=== PATIENT | female | born 1955 | race Hispanic/Latino ===

== ENCOUNTER 2023-03-30 11:35 | Emergency (ER) | payer MEDICARE, SELFPAY ==
--- NOTE | 2023-03-30 11:41 | ED.URI ---
HPI - URI/Sore Throat General Chief Complaint: Upper Respiratory Infection Stated Complaint: Sore Throat Time Seen by Provider: 03/30/23 12:03 Source: patient and RN notes reviewed Mode of arrival: ambulatory Limitations: no limitations History of Present Illness HPI Narrative: 67-year-old female presents concern for sore throat. She reports to 3 week history of nasal congestion, rhinorrhea, cough. Reports symptoms evolve with sore throat, fever, chills, body aches. She has not taken any medications for her symptoms. She reports painful swallowing MD elicited complaint: sore throat Related Data Allergies Allergy/AdvReac Type Severity Reaction Status Date / Time acetaminophen Allergy Unknown Unknown Verified 03/30/23 11:46 morphine Allergy Unknown Unknown Verified 03/30/23 11:46 oxycodone Allergy Unknown Unknown Verified 03/30/23 11:46 Penicillins Allergy Unknown Unknown Verified 03/30/23 11:46 vancomycin Allergy Unknown Unknown Verified 03/30/23 11:46 Contrast Media Allergy Unknown Unknown Uncoded 03/30/23 11:46 Review of Systems Review of Systems: CONSTITUTIONAL: Denies malaise, chills, sweats, or fever. EYES: Denies visual changes, redness, or discharge. ENT: Reports rhinorrhea, congestion, otalgia and sore throat. CARDIOVASCULAR: Denies chest pain, palpitations, or edema. RESPIRATORY: Reports cough. Denies dyspnea. GASTROINTESTINAL: Denies abdominal pain, nausea, vomiting, diarrhea SKIN: Denies rash or itching. MUSCULOSKELETAL: Reports myalgia. NEUROLOGIC: Denies headache. All systems reviewed & are unremarkable except as noted in HPI and below PMFSH Comments At time of signature, agree with nursing past medical, surgical, social and family history. There is no relevant family history pertinent to the presenting complaint Exam Narrative: GENERAL: Well-appearing, well-nourished, and in no acute distress. HEAD: Normocephalic EYES: PERRLA, conjunctivae clear ENT: Nares clear Mucous membranes moist. TM pearly lomax with dull light reflex bilaterally; no tragal tenderness. Oropharynx erythematous without lesions. Tonsils enlarged and without exudate, no drooling, no hoarseness, no trismus, uvula midline. NECK: Supple. No lymphadenopathy CHEST: Clear to auscultation, breath sounds equal. No wheezing, rhonchi, rales, or stridor. No respiratory distress, speaks in full sentences. HEART: Regular rate and rhythm. No murmur heard. SKIN: Warm, dry, no rash. NEURO: Alert and oriented x3. PSYCH: Normal mood and affect Course Course Emergency Course: Patient is aware of diagnosis, understands and agrees to treatment plan. Anticipatory guidance given. Patient agrees to follow-up as directed and is aware of reasons to seek care at the emergency department. Portions of this record may have been created with voice recognition software Level of Care: Express Care Visit Vital Signs Vital signs: Reviewed. MDM - URI/Sore Throat MDM Narrative Medical decision making narrative: Differential diagnosis considered: Arriola virus, strep pharyngitis, allergic rhinitis, upper respiratory tract infection, sinusitis, rhinosinusitis, nasopharyngitis. viral pharyngitis, otitis media, otitis externa, pneumonia, bronchitis, viral cough syndrome, viral syndrome, and influenza. Exam findings show no acute concerns or changes; patient is non-toxic appearing and is in no distress. Patient is appropriate for outpatient treatment and follow-up. Lab Data Attestation: I reviewed the patient's lab results. Critical Care Time Critical Care Time Critical Care Time: No Discharge Plan Discharge Clinical Impression: Acute streptococcal pharyngitis Patient Disposition: Home, Self-Care Condition: Stable Instructions: Antibiotic Form, Strep Throat (ED) Additional Instructions: -Take the medication as prescribed. Throw away the toothbrush after 24hours of antibiotic. -Eat and drink things that are easy to swallow, like tea or soup, or p
[2023-03-30 11:52] VITALS: BP 121/70; PULSE 76; RESP 16; TEMP 36.4; O2SAT 100
== END 2023-03-30 12:19 | disposition home or self-care (01) ==
PROVIDERS: Emergency Provider Nurse Practitioner
DX: J02.0 Streptococcal pharyngitis (principal); E78.00 Pure hypercholesterolemia, unspecified; I10 Essential (primary) hypertension; K21.9 Gastro-esophageal reflux disease without esophagitis; E11.9 Type 2 diabetes mellitus without complications
CPT/HCPCS: 87880; 99213; G0463

== ENCOUNTER 2024-10-22 14:35 | Emergency (ER) | payer MEDICARE, SELFPAY ==
[2024-10-22 14:44] VITALS: BP 128/64; PULSE 76; RESP 16; TEMP 36.6; O2SAT 99
[2024-10-22 15:16] LABS: EDUAAPPEAR Cloudy; EDUABILI Negative (Negative); EDUABLOOD Negative (Negative); EDUACOLOR1 Dark; EDUAGLUCOSE Negative (Negative); EDUAKETONE 1+ (Negative); EDUALEUKO 2+ (Negative); EDUANITRATE Negative (Negative); EDUAPH 5.5; EDUAPROTEIN 1+ (Negative); EDUAUROBILI 0.2
--- NOTE | 2024-10-22 16:22 | ED_ITS ---
HPI - Female Genitourinary General Chief complaint: Urogenital-Female Stated complaint: UTI Time Seen by Provider: 10/22/24 14:35 Source: patient Mode of arrival: ambulatory Limitations: no limitations History of Present Illness HPI Narrative: Patient is a 69-year-old female presents with burning, urgency, frequency, right low back pain, chills for 3 days. Patient has been taking azo. Denies any fever, nausea, vomiting, diarrhea. MD elicited complaint: dysuria Related Data Home Medications Medication Instructions Recorded Confirmed Last Taken Type amlodipine 5 mg tablet 5 mg PO DAILY 03/30/23 03/30/23 Unknown History escitalopram oxalate 10 mg tablet 10 mg PO DAILY 03/30/23 03/30/23 Unknown History fluticasone propionate 50 1 spray intranasal DAILY 03/30/23 03/30/23 Unknown History mcg/actuation nasal spray,suspension liraglutide 0.6 mg/0.1 mL (18 mg/3 See Rx Instructions .Route .COMPLEX 03/30/23 03/30/23 Unknown History mL) subcutaneous pen injector (Proximic 3-Matt) lisinopril 5 mg tablet 5 mg PO DAILY 03/30/23 03/30/23 Unknown History metformin 500 mg tablet,extended 500 mg PO DAILY 03/30/23 03/30/23 Unknown History release 24 hr oxybutynin chloride 10 mg 10 mg PO DAILY 03/30/23 03/30/23 Unknown History tablet,extended release 24 hr pantoprazole 40 mg tablet,delayed 40 mg PO DAILY 03/30/23 03/30/23 Unknown History release pravastatin 20 mg tablet 20 mg PO DAILY 03/30/23 03/30/23 Unknown History Allergies Allergy/AdvReac Type Severity Reaction Status Date / Time acetaminophen Allergy Unknown tachycardic Verified 10/22/24 15:08 morphine Allergy Unknown tachycardic Verified 10/22/24 15:08 oxycodone Allergy Unknown Swelling Verified 10/22/24 15:08 Penicillins Allergy Unknown Rash Verified 10/22/24 15:08 vancomycin Allergy Unknown rash Verified 10/22/24 15:08 Contrast Media Allergy Unknown Swelling Uncoded 10/22/24 15:08 Review of Systems Review of Systems: All systems reviewed & are unremarkable except as noted in HPI and below Constitutional: Constitutional: Reports chills, Denies fever(s), Denies headache(s), Denies malaise and Denies weakness Eyes: Eyes: Denies change in vision, Denies eye discharge and Denies irritation ENT: Denies otalgia, Denies headache(s), Denies nasal congestion, Denies nasal discharge, Denies sinus pain and Denies sore throat Cardiovascular: Cardiovascular: Denies chest pain, Denies edema, Denies palpitations and Denies dyspnea Respiratory: Respiratory: Denies cough and Denies dyspnea Gastrointestinal: Gastrointestinal: Denies abdominal pain, Denies diarrhea, Denies nausea and Denies vomiting Genitourinary: Genitourinary: Denies hematuria, Reports nocturia, Reports dysuria, Denies flank pain and Reports urinary urgency Musculoskeletal: Musculoskeletal: Reports back pain and Denies numbness Integumentary/Breasts: Skin/Breast: Denies pruritus and Denies rash Neurologic: Denies headache(s), Denies numbness and Denies weakness Psychiatric: Psychiatric: Reports no additional psychiatric complaints Endocrine: Endocrine: Denies palpitations PMFSH Comments At time of signature, agree with nursing past medical, surgical, social and family history. There is no relevant family history pertinent to the presenting complaint. Exam Const: General: cooperative, healthy appearing, comfortable, no acute distress and well nourished Nutritional Appearance: well nourished Orientation/consciousness: patient oriented x3 HENMT: Head: normocephalic and atraumatic Ears: external ears normal Face/Nose/Sinus: Normal external nose present, Normal nares present and normal facial exam Face and sinus: normal facial exam Eyes: General: appearance normal, both eyes and all related structures Pupils: Equal, round and reactive pupils present EOM: EOMs intact bilaterally Neck: Neck: normal visual inspection, full ROM and supple Chest: Chest palpation & inspection: normal inspection of the chest Resp: Effort & Inspection: normal respiratory effort and able to speak in complete sentences Cardio: Rate: regular rate Rhythm: regular rhythm GI: Inspection: normal to inspection GI Palp: No abdominal tenderness and Yes Soft to palpation : General: Yes no CVA tenderness Back/Spine/Pelvis: Back: no CVA tenderness Skin: General skin exam: normal color and no rashes or lesions noted Neuro: General: patient oriented x3 and moves all extremities Cranial nerves: Yes Equal, round and reactive pupils present Extrem: General: normal to inspection and full ROM Psych: Appearance: grossly normal and well kempt Course Course Emergency Course: Patient is aware of diagnosis, understands and agrees to treatment plan. Anticipatory guidance given. Patient agrees to follow-up as directed and is aware of reasons to seek care at the emergency department. Portions of this record may have been created with voice recognition software Level of Care: Express Care Visit Vital Signs Vital signs: Vital Signs Temperature 36.6 C 10/22/24 14:44 Pulse Rate 76 10/22/24 14:44 Respiratory Rate 16 10/22/24 14:44 Blood Pressure 128/64 10/22/24 14:44 Pulse Oximetry 99 10/22/24 14:44 Oxygen Delivery Room Air 10/22/24 14:44 Temperature 36.6 C 10/22/24 14:44 Pulse Rate 76 10/22/24 14:44 Respiratory Rate 16 10/22/24 14:44 Blood Pressure 128/64 10/22/24 14:44 Pulse Oximetry 99 10/22/24 14:44 Oxygen Delivery Room Air 10/22/24 14:44 Reviewed MDM - Female Genitourinary MDM Narrative Medical decision making narrative: Exam findings and UA show probable UTI; patient is non-toxic appearing and is in no distress. No CMT, adnexal tenderness, or evidence of pelvic etiology. Patient is appropriate for outpatient treatment and follow-up. Differential Diagnosis Differential diagnosis: Likely urinary tract infection, bacterial vaginosis, trichomoniasis, cervicitis, vaginitis and cystitis Medical Records Attestation: I reviewed the patient's medical records. Lab Data Attestation: I reviewed the patient's lab results. Labs: Lab Results 10/22/24 Range/Units 15:12 POC Urine Color Dark POC Urine Clarity Cloudy POC Urine pH 5.5 POC Ur Specif [place] 1.030 POC Urine Protein 1+ (Negative) POC Ur Glucose (UA) Negative (Negative) POC Urine Ketones 1+ (Negative) POC Urine Blood Negative (Negative) POC Urine Nitrite Negative (Negative) POC Urine Bilirubin Negative (Negative) POC Urine Urobilinogen 0.2 POC U Leukocyte Esteras 2+ (Negative) Discharge Plan Discharge Clinical Impression: Urinary tract infection Qualifiers: Urinary tract infection type: acute cystitis Hematuria presence: without hematuria Qualified Code(s): N30.00 - Acute cystitis without hematuria Patient Disposition: Home Condition: Stable Instructions: Urinary Tract Infection in Older Adults (ED) Additional Instructions: We will send a urine culture to the lab, based on your symptoms and urine dip we will start treatment today. If culture comes back and bacteria is not susceptible to antibiotic, your prescription may change. Your symptoms should improve within a day of starting antibiotics, but you should finish all the antibiotic pills you get. Otherwise your infection might come back Continue with increased water intake. Take Tylenol or ibuprofen as needed for pain or fever. Follow-up with primary care provider for urine recheck or see ER visit if condition worsens with high fever, nausea, vomiting, severe back pain Enviaremos un cultivo de orina al laboratorio. Según lynn síntomas y la prueba de orina, comenzaremos el tratamiento hoy. Si el cultivo arroja resultados y las bacterias no son sensibles a los antibióticos, rivera receta podría cambiar. Lynn síntomas deberían mejorar al día siguiente de comenzar los antibióticos, donnie debe terminar todas las pastillas que le den. De lo contrario, la infección podría reaparecer. Continúe con el aumento de la ingesta de agua. [place] Tylenol o ibuprofeno según sea necesario para el dolor o la fiebre. Consulte con rivera médico de cabecera para un nuevo análisis de orina o acuda a urgencias si la afección empeora con fiebre wilman, náuseas, vómitos o dolor de espalda intenso. Patient Language: English Prescriptions: New nitrofurantoin monohyd/m-cryst 100 mg capsule 100 mg PO Q12H 5 Days Qty: 10 0RF Rx Instructions: must administer with a meal/food No Action azithromycin [Zithromax Z-Matt] 250 mg tablet See Rx Instructions .ROUTE .COMPLEX Qty: 6 0RF Rx Instructions: take 500 mg today (day 1), then 250 mg for 4 days (days 2-5) oxybutynin chloride 10 mg tablet extended release 24hr 10 mg PO DAILY amlodipine 5 mg tablet 5 mg PO DAILY pantoprazole 40 mg tablet,delayed release (DR/EC) 40 mg PO DAILY pravastatin 20 mg tablet 20 mg PO DAILY lisinopril 5 mg tablet 5 mg PO DAILY fluticasone propionate 50 mcg/actuation spray,suspension 1 spray INTRANASAL DAILY metformin 500 mg tablet extended release 24 hr 500 mg PO DAILY escitalopram oxalate 10 mg tablet 10 mg PO DAILY Victoza 3-Matt 0.6 mg/0.1 mL (18 mg/3 mL) pen injector See Rx Instructions .ROUTE .COMPLEX Rx Instructions: Rx Follow-up/Referrals: Toby Aguilar MD [Physician] - 3 Days (Establish care) Time of Disposition: 16:31
== END 2024-10-22 16:41 | disposition home or self-care (01) ==
PROVIDERS: Emergency Provider Nurse Practitioner Family
DX: N30.00 Acute cystitis without hematuria (principal)
CPT/HCPCS: 81003; 87086; 99213; G0463

== ENCOUNTER 2024-12-06 10:55 | Emergency (ER) | payer MEDICARE, SELFPAY ==
--- NOTE | 2024-12-06 10:59 | ED.FEMALEGU ---
HPI - Female Genitourinary General Chief complaint: Urogenital-Female Stated complaint: urinary irritation Time Seen by Provider: 12/06/24 10:59 Source: patient Mode of arrival: ambulatory Limitations: no limitations History of Present Illness HPI Narrative: Doreen is a 69-year-old female patient presenting to the clinic today with complaints possible UTI. She reports frequency with urination, right low back pain, bladder pressure, and some chills. No known fevers. Related Data Home Medications ?Medication ?Instructions ?Recorded ?Confirmed ?Last Taken ?Type amlodipine 5 mg tablet 5 mg PO DAILY 03/30/23 03/30/23 Unknown History escitalopram oxalate 10 mg tablet 10 mg PO DAILY 03/30/23 03/30/23 Unknown History fluticasone propionate 50 1 spray intranasal DAILY 03/30/23 03/30/23 Unknown History mcg/actuation nasal spray,suspension liraglutide 0.6 mg/0.1 mL (18 mg/3 See Rx Instructions .Route .COMPLEX 03/30/23 03/30/23 Unknown History mL) subcutaneous pen injector ([employer] 3-Matt) lisinopril 5 mg tablet 5 mg PO DAILY 03/30/23 03/30/23 Unknown History metformin 500 mg tablet,extended 500 mg PO DAILY 03/30/23 03/30/23 Unknown History release 24 hr oxybutynin chloride 10 mg 10 mg PO DAILY 03/30/23 03/30/23 Unknown History tablet,extended release 24 hr pantoprazole 40 mg tablet,delayed 40 mg PO DAILY 03/30/23 03/30/23 Unknown History release pravastatin 20 mg tablet 20 mg PO DAILY 03/30/23 03/30/23 Unknown History Allergies Allergy/AdvReac Type Severity Reaction Status Date / Time acetaminophen Allergy Unknown tachycardic Verified 12/06/24 11:09 morphine Allergy Unknown tachycardic Verified 12/06/24 11:09 oxycodone Allergy Unknown Swelling Verified 12/06/24 11:09 Penicillins Allergy Unknown Rash Verified 12/06/24 11:09 vancomycin Allergy Unknown rash Verified 12/06/24 11:09 Contrast Media Allergy Unknown Swelling Uncoded 12/06/24 11:09 Review of Systems Review of Systems: Pertinent positives per HPI. Patient denies any fever, chills, rash, headache, visual changes, dizziness, cough, runny nose, sore throat, shortness of breath, chest pain, palpitations, nausea, vomiting, diarrhea, constipation, abdominal pain, or any urinary issues. PMFSH Comments At the time of my signature, I reviewed and agree with the nursing past medical, surgical, social, and family history. There is no relevant family history pertinent to the patient complaint. Exam Narrative: General: Well-developed, well nourished, in no apparent distress. Head: Normocephalic, atraumatic. Cardio: Regular rate and rhythm, s1 and s2 normal, no murmur appreciated. Resp: Clear to auscultation bilaterally, no rhonchi, rales, wheezing or rubs. Abdomen: Soft, pliable, bowel sounds present in all quadrants, suprapubic tender to palpation, no organomegly, mild right CVAT tenderness. Course Course Emergency Course: Portions of this record may have been created with voice recognition software. Level of Care: Express Care Visit Vital Signs Vital signs: Vital Signs Temperature 37.0 C 12/06/24 11:09 Pulse Rate 81 12/06/24 11:09 Respiratory Rate 16 12/06/24 11:09 Blood Pressure 122/62 12/06/24 11:09 Pulse Oximetry 97 12/06/24 11:09 Oxygen Delivery Room Air 12/06/24 11:09 Temperature 37.0 C 12/06/24 11:09 Pulse Rate 81 12/06/24 11:09 Respiratory Rate 16 12/06/24 11:09 Blood Pressure 122/62 12/06/24 11:09 Pulse Oximetry 97 12/06/24 11:09 Oxygen Delivery Room Air 12/06/24 11:09 Vital signs reviewed MDM - Female Genitourinary MDM Narrative Medical decision making narrative: At the time of visit patient is resting comfortably on the exam table. Patient appears to be nontoxic. Labs: Urinalysis positive for 3+ leukocytes, 3+ blood, protein, nitrates, and trace ketone. We will send urine for culture. Plan: I suspect patient has a complicated UTI-possibly pyelonephritis. Prescription for 7 day course of ciprofloxacin was sent to the pharmacy. We will send urine for culture. Supportive measures were discussed with the patient and they voiced understanding discharge instructions and agrees to treatment plan. Return precautions reviewed Differential Diagnosis Differential diagnosis: Likely urinary tract infection, cystitis and other (Pyelonephritis) Discharge Plan Discharge Clinical Impression: Urinary tract infection Qualifiers: Urinary tract infection type: acute cystitis Hematuria presence: with hematuria Qualified Code(s): N30.01 - Acute cystitis with hematuria Patient Disposition: Home Condition: Stable Instructions: Antibiotic Form, Urinary Tract Infection in Women (ED) Additional Instructions: Urinalysis positive for leukocytes, protein, nitrates, blood, and trace of ketone. We will send urine for culture Take ciprofloxacin as prescribed Increase fluids and stay well hydrated Wipe front to back. May use wet wipes. Avoid tub baths If sexually active- pee before and after intercourse. Wear cotton panties Avoid tight clothing up against the genitals Follow up with your PCP in 1 week if symptoms persist. Patient Language: Icelandic Prescriptions: New ciprofloxacin HCl [Cipro] 500 mg tablet 500 mg PO Q12H 7 Days Qty: 14 0RF No Action oxybutynin chloride 10 mg tablet extended release 24hr 10 mg PO DAILY amlodipine 5 mg tablet 5 mg PO DAILY pantoprazole 40 mg tablet,delayed release (DR/EC) 40 mg PO DAILY pravastatin 20 mg tablet 20 mg PO DAILY lisinopril 5 mg tablet 5 mg PO DAILY fluticasone propionate 50 mcg/actuation spray,suspension 1 spray INTRANASAL DAILY metformin 500 mg tablet extended release 24 hr 500 mg PO DAILY escitalopram oxalate 10 mg tablet 10 mg PO DAILY liraglutide [Victoza 3-Matt] 0.6 mg/0.1 mL (18 mg/3 mL) pen injector See Rx Instructions .ROUTE .COMPLEX Rx Instructions: Rx nitrofurantoin monohyd/m-cryst 100 mg capsule 100 mg PO Q12H 5 Days Qty: 10 0RF Rx Instructions: must administer with a meal/food Follow-up/Referrals: UNKNOWN,DOCTOR [Primary Care Provider] - Time of Disposition: 11:19 Quality NIHSS Nursing Documentation ED NIHSS nursing documentation: reviewed/agree
[2024-12-06 11:09] VITALS: BP 122/62; PULSE 81; RESP 16; TEMP 37; O2SAT 97
[2024-12-06 11:31] LABS: EDUAAPPEAR Cloudy; EDUABILI Negative (Negative); EDUABLOOD 3+ (Negative); EDUACOLOR1 Dark; EDUAGLUCOSE Negative (Negative); EDUAKETONE Trace (Negative); EDUALEUKO 3+ (Negative); EDUANITRATE Positive (Negative); EDUAPROTEIN 3+ (Negative); EDUASPGRAVITY 1.025
== END 2024-12-06 11:30 | disposition home or self-care (01) ==
PROVIDERS: Emergency Provider Nurse Practitioner Family
DX: N30.01 Acute cystitis with hematuria (principal); I10 Essential (primary) hypertension; K21.9 Gastro-esophageal reflux disease without esophagitis; E11.9 Type 2 diabetes mellitus without complications; Z79.84 Long term (current) use of oral hypoglycemic drugs; F32.A Depression, unspecified
CPT/HCPCS: 81003; 87086; 87186; 99213; G0463

== ENCOUNTER 2025-01-14 09:56 | Emergency (ER) | payer MEDICARE, SELFPAY ==
--- NOTE | 2025-01-14 09:57 | ED_ITS ---
HPI - Female Genitourinary General Chief complaint: Urogenital-Female Stated complaint: UTI Time Seen by Provider: 01/14/25 09:57 Source: patient Mode of arrival: ambulatory Limitations: no limitations History of Present Illness MD elicited complaint: dysuria Related Data Home Medications ?Medication ?Instructions ?Recorded ?Confirmed ?Last Taken ?Type amlodipine 5 mg tablet 5 mg PO DAILY 03/30/23 03/30/23 Unknown History escitalopram oxalate 10 mg tablet 10 mg PO DAILY 03/30/23 03/30/23 Unknown History fluticasone propionate 50 1 spray intranasal DAILY 03/30/23 03/30/23 Unknown History mcg/actuation nasal spray,suspension liraglutide 0.6 mg/0.1 mL (18 mg/3 See Rx Instructions .Route .COMPLEX 03/30/23 03/30/23 Unknown History mL) subcutaneous pen injector (Victoza 3-Matt) lisinopril 5 mg tablet 5 mg PO DAILY 03/30/23 03/30/23 Unknown History metformin 500 mg tablet,extended 500 mg PO DAILY 03/30/23 03/30/23 Unknown History release 24 hr oxybutynin chloride 10 mg 10 mg PO DAILY 03/30/23 03/30/23 Unknown History tablet,extended release 24 hr pantoprazole 40 mg tablet,delayed 40 mg PO DAILY 03/30/23 03/30/23 Unknown History release pravastatin 20 mg tablet 20 mg PO DAILY 03/30/23 03/30/23 Unknown History Allergies Allergy/AdvReac Type Severity Reaction Status Date / Time acetaminophen Allergy Unknown tachycardic Verified 01/14/25 10:12 morphine Allergy Unknown tachycardic Verified 01/14/25 10:12 oxycodone Allergy Unknown Swelling Verified 01/14/25 10:12 Penicillins Allergy Unknown Rash Verified 01/14/25 10:12 vancomycin Allergy Unknown rash Verified 01/14/25 10:12 Contrast Media Allergy Unknown Swelling Uncoded 01/14/25 10:12 Review of Systems Review of Systems: All systems reviewed & are unremarkable except as noted in HPI and below Constitutional: Constitutional: Denies chills, Denies fever(s), Denies headache(s), Denies malaise and Denies weakness Eyes: Eyes: Denies change in vision, Denies eye discharge and Denies irritation ENT: Denies otalgia, Denies headache(s), Denies nasal congestion, Denies nasal discharge, Denies sinus pain and Denies sore throat Cardiovascular: Cardiovascular: Denies chest pain, Denies edema, Denies palpitations and Denies dyspnea Respiratory: Respiratory: Denies cough and Denies dyspnea Gastrointestinal: Gastrointestinal: Denies abdominal pain, Denies diarrhea, Denies nausea and Denies vomiting Genitourinary: Genitourinary: Denies hematuria, Reports nocturia, Reports dysuria, Denies flank pain and Reports urinary urgency Musculoskeletal: Musculoskeletal: Denies back pain and Denies numbness Integumentary/Breasts: Skin/Breast: Denies pruritus and Denies rash Neurologic: Denies headache(s), Denies numbness and Denies weakness Psychiatric: Psychiatric: Reports no additional psychiatric complaints Endocrine: Endocrine: Denies palpitations PMFSH Comments At time of signature, agree with nursing past medical, surgical, social and family history. There is no relevant family history pertinent to the presenting complaint. Exam Const: General: cooperative, healthy appearing, comfortable, no acute distress and well nourished Nutritional Appearance: well nourished Orientation/consciousness: patient oriented x3 HENMT: Head: normocephalic and atraumatic Ears: external ears normal Face/Nose/Sinus: Normal external nose present, Normal nares present and normal facial exam Face and sinus: normal facial exam Eyes: General: appearance normal, both eyes and all related structures Pupils: Equal, round and reactive pupils present EOM: EOMs intact bilaterally Neck: Neck: normal visual inspection, full ROM and supple Chest: Chest palpation & inspection: normal inspection of the chest Resp: Effort & Inspection: normal respiratory effort and able to speak in complete sentences Cardio: Rate: regular rate Rhythm: regular rhythm GI: Inspection: normal to inspection GI Palp: No abdominal tenderness and Yes Soft to palpation : General: Yes no CVA tenderness Back/Spine/Pelvis: Back: no CVA tenderness Skin: General skin exam: normal color and no rashes or lesions noted Neuro: General: patient oriented x3 and moves all extremities Cranial nerves: Yes Equal, round and reactive pupils present Extrem: General: normal to inspection and full ROM Psych: Appearance: grossly normal and well kempt Course Course Emergency Course: Patient is aware of diagnosis, understands and agrees to treatment plan. A nticipatory guidance given. Patient agrees to follow-up as directed and is aware of reasons to seek care at the emergency department. Portions of this record may have been created with voice recognition software Level of Care: Express Care Visit Vital Signs Vital signs: Vital Signs Temperature 36.4 C L 01/14/25 10:05 Pulse Rate 79 01/14/25 10:05 Respiratory Rate 16 01/14/25 10:05 Blood Pressure 130/67 01/14/25 10:05 Pulse Oximetry 94 01/14/25 10:05 Oxygen Delivery Room Air 01/14/25 10:05 Temperature 36.4 C L 01/14/25 10:05 Pulse Rate 79 01/14/25 10:05 Respiratory Rate 16 01/14/25 10:05 Blood Pressure 130/67 01/14/25 10:05 Pulse Oximetry 94 01/14/25 10:05 Oxygen Delivery Room Air 01/14/25 10:05 Reviewed MDM - Female Genitourinary MDM Narrative Medical decision making narrative: Patient called urologist this morning but was unable to get in. Appointment set for February 11. Will send in Keflex based on previous urine sensitivity. Aware of potential cross sensitivity. All other oral options patient has allergies to or are resistant. Exam findings and UA show probable UTI; patient is non-toxic appearing and is in no distress. No CMT, adnexal tenderness, or evidence of pelvic etiology. Patient is appropriate for outpatient treatment and follow-up. Differential Diagnosis Differential diagnosis: Likely urinary tract infection, bacterial vaginosis, trichomoniasis, cervicitis, vaginitis and cystitis Medical Records Attestation: I reviewed the patient's medical records. Lab Data Attestation: I reviewed the patient's lab results. Labs: Lab Results 01/14/25 Range/Units 10:14 POC Urine Color Yellow POC Urine Clarity Cloudy POC Urine pH 6.0 POC Ur Specif [place] 1.020 POC Urine Protein Trace (Negative) POC Ur Glucose (UA) Negative (Negative) POC Urine Ketones Negative (Negative) POC Urine Blood 2+ (Negative) POC Urine Nitrite Positive (Negative) POC Urine Bilirubin Negative (Negative) POC Urine Urobilinogen 0.2 POC U Leukocyte Esteras 3+ (Negative) Discharge Plan Discharge Clinical Impression: Urinary tract infection Qualifiers: Urinary tract infection type: acute cystitis Hematuria presence: with hematuria Qualified Code(s): N30.01 - Acute cystitis with hematuria Patient Disposition: Home Condition: Stable Instructions: Urinary Tract Infection in Women (ED) Additional Instructions: We will send a urine culture to the lab, based on your symptoms and urine dip we will start treatment today. If culture comes back and bacteria is not susceptible to antibiotic, your prescription may change. Your symptoms should improve within a day of starting antibiotics, but you should finish all the antibiotic pills you get. Otherwise your infection might come back Continue with increased water intake. Take Tylenol or ibuprofen as needed for pain or fever. Follow-up with primary care provider for urine recheck or see ER visit if condition worsens with high fever, nausea, vomiting, severe back pain Enviaremos un cultivo de orina al laboratorio. Seg?n lynn s?ntomas y la prueba de orina, comenzaremos el tratamiento hoy. Si el cultivo arroja resultados y las bacterias no son sensibles a los antibi?ticos, rivera receta podr?a cambiar. Lynn s?ntomas deber?an mejorar al d?a siguiente de comenzar los antibi?ticos, donnie debe terminar todas las pastillas que le den. De lo contrario, la infecci?n podr?a reaparecer. Contin?e con el aumento de la ingesta de agua. [place] Tylenol o ibuprofeno seg?n sea necesario para el dolor o la fiebre. Consulte con rivera m?dico de cabecera para un nuevo an?lisis de orina o acuda a urgencias si la afecci?n empeora con fiebre wilman, n?useas, v?mitos o dolor de espalda intenso. Patient Language: Omani Prescriptions: New cephalexin 500 mg capsule 500 mg PO QID 7 Days Qty: 28 0RF No Action oxybutynin chloride 10 mg tablet extended release 24hr 10 mg PO DAILY amlodipine 5 mg tablet 5 mg PO DAILY pantoprazole 40 mg tablet,delayed release (DR/EC) 40 mg PO DAILY pravastatin 20 mg tablet 20 mg PO DAILY lisinopril 5 mg tablet 5 mg PO DAILY fluticasone propionate 50 mcg/actuation spray,suspension 1 spray INTRANASAL DAILY metformin 500 mg tablet extended release 24 hr 500 mg PO DAILY escitalopram oxalate 10 mg tablet 10 mg PO DAILY liraglutide [Victoza 3-Matt] 0.6 mg/0.1 mL (18 mg/3 mL) pen injector See Rx Instructions .ROUTE .COMPLEX Rx Instructions: Rx Follow-up/Referrals: Toby Aguilar MD [Physician] - 3 Days Time of Disposition: 10:37
[2025-01-14 10:05] VITALS: BP 130/67; PULSE 79; RESP 16; TEMP 36.4; O2SAT 94
[2025-01-14 10:24] LABS: EDUAAPPEAR Cloudy; EDUABILI Negative (Negative); EDUABLOOD 2+ (Negative); EDUACOLOR1 Yellow; EDUAGLUCOSE Negative (Negative); EDUAKETONE Negative (Negative); EDUALEUKO 3+ (Negative); EDUANITRATE Positive (Negative); EDUAPH 6.0; EDUAPROTEIN Trace (Negative); EDUASPGRAVITY 1.020; EDUAUROBILI 0.2
== END 2025-01-14 10:50 | disposition home or self-care (01) ==
PROVIDERS: Emergency Provider Nurse Practitioner Family
DX: N30.01 Acute cystitis with hematuria (principal); I10 Essential (primary) hypertension; E78.00 Pure hypercholesterolemia, unspecified; K21.9 Gastro-esophageal reflux disease without esophagitis; N32.81 Overactive bladder; E11.9 Type 2 diabetes mellitus without complications; Z79.84 Long term (current) use of oral hypoglycemic drugs; Z79.85 Long-term (current) use of injectable non-insulin antidiabetic drugs; Z85.028 Personal history of other malignant neoplasm of stomach
CPT/HCPCS: 81003; 87086; 99213; G0463